=== PATIENT | female | born 1970 | race Caucasian/White ===

== ENCOUNTER 2017-09-10 06:02 | Day surgery (SDC) | payer BC, SELFPAY ==
[2017-09-05 17:50] LABS: Hematocrit 38.8 % (37-47); Mean Corp Hgb Conc 33.5 g/gl (32-36); Mean Corpuscular Hgb 30.7 pg (27.0-32.0); Mean Corpuscular Volume 91.7 fL (81-99); Mean Platelet Vol. 9.7 fl (6.2-12.0); Platelet Count 333 K/mm3 (150-450); RBC Distribution Width CV 12.4 % (11.6-14.6); RBC Distribution Width SD 40.7 fl (35.1-43.9); Red Blood Count 4.23 M/mm3 (4.2-5.4); White Blood Count 7.5 K/mm3 (4.4-11.0)
[2017-09-05 17:57] LABS: Scan Indicated on CBC? Y/N NO
[2017-09-05 18:28] LABS: Creatinine, Serum 0.84 mg/dL (0.55-1.02); EST Glomerular Filtration Rate 77 mL/min (>60); Est Glom Filt Rate - Afr Amer 93 mL/min (>60)
[2017-09-06 09:16] LABS: Anion Gap 9 (5-15); BUN 11 mg/dL (7-18); BUN/Creat Ratio 13.1 RATIO (10-20); Calcium,Total 8.3 mg/dL (8.5-10.1); Chloride 107 mmol/L (98-107); Glucose 78 mg/dL (74-106); Sodium Level 138 mmol/L (136-145); Thyroid Stim Hormone (TSH) 2.78 uIU/mL (0.358-3.74)
--- NOTE | 2017-09-09 13:12 | HP.PCM_ITS ---
History and Physical Date of Admission: 09/10/17 Surgical History and Physical Yue Andres, a 47 year old female 3 0 0 0 3, presents for RAVH/BS on September 10, 2017 at 7:30. -- Extremely Heavy Menses S/P Ablation -- Heavy bleeding with menses. 47 y.o. G 3 P 3 non-smoker with history of Ablation 1 year ago and menses continues to be heavy flow with cramping; Ablation 1 year ago/ Bleeding continues. Yue claims it started gradually and has been present 1 year. It occurs with menses. It is located in the vagina. ; It is located in the lower abdomen. Travice characterizes it to be non- radiating. Yue characterizes the quality heavy. Severity is moderate and very concerned. MEDICATIONS HISTORY: Patient is also takin. Lasix 20 mg tablet, One pill by mouth once a day 2. Topamax 100 mg tablet, 1 1/2 tab qd 3. levothyroxine 125 mcg tablet, One pill by mouth once a day ALLERGIES: No Known Allergies Infections - Chicken pox Illnesses - Migraines, Accidents - None Hospitalizations - see surgery Review of Systems: GENERAL - Denies fever, or chills SKIN - Denies skin changes EYES - Denies visual changes EARS - Denies difficulty hearing NOSE - Denies nasal congestion or bleeding MOUTH - Denies sore throat or difficulty swallowing NECK - Denies pain or swelling RESPIRATORY - Denies shortness of breath or wheezing CARDIOVASCULAR - Denies palpitations or chest pain GASTROINTESTINAL - Denies nausea, vomiting, diarrhea, constipation GENITOURINARY - Denies dysuria, frequency of urination, incontinence of urine MUSCULOSKELETAL - Denies joint or muscle pain NEUROLOGICAL - Denies localized numbness or weakness PSYCHIATRIC - Denies depression or anxiety ENDOCRINE - Denies heat or cold intolerance, weight loss or gain HEMATO-IMMUNOLOGIC - Denies excessive bleeding with cuts SOCIAL HISTORY: Alcohol Use - RARELY Smoking - Never Diet - no special diet Lifestyle - Exercise - active Seat Belt Use - always Employer - [employer]) 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 Spouse-Sig Other Occupation - Sueding Machine Tender Control - Prior Tubal FAMILY HISTORY: MENSTRUAL HISTORY: LMP Known?- DefiniteAmount/Duration - 4 days, Regularity - Regular, Frequency - monthly days, LMP - 08/25/17, Age Onset Menarche - 12 PAST PREGNANCIES: Total Pregnancies - 3; Full Term Pregnancies - 3; Premature - 0; Abortions, Induced - 0; Abortions, Spontaneous - 0; Ectopics - 0; Multiple Births - 0; Living Children - 3 SURGICAL HISTORY: 1. 04/25/2016 hysteroscopy, D and C, HTA ; Mansoor Simeon M.D. - 2. 1987 Ankle Surgery ; - 3. 06/29 (R) Shoulder Surgery ; - 4. 2013 (L) Shoulder Surgery ; Dr. Johnson - 5. 1994 BTO ; Dr. Ny - PHYSICAL EXAM BP- 128/74 Sitting, Right arm, regular cuff Weight- 243.08063 lbs Height- 65.50 inch BMI:39.91 CONSTITUTIONAL - NAD, well nourished, and well developed SKIN - No rash, lesions, or ulcers HEENT - Normocephalic, PERRLA, EOMI NECK - No nodes, no nuchal rigidity and thyroid normal size and texture LYMPH NODES - Palpation of lymph nodes in neck and groins within normal limits LUNGS - CTA x2 without wheezes, crackles or rales CARDIAC - Regular rate and rhythm without rubs, murmurs, or gallops BREAST - No dominant masses, no tenderness, no axillary adenopathy, no nipple discharge, no skin changes ABDOMEN - Without hepatosplenomegaly, distention, masses, rebound, or guarding; normal bowel sounds; no hernias EXTREMITIES - No edema or calf tenderness NEUROLOGICAL - Cranial nerves II-XII grossly intact PSYCHIATRIC - A and O to time, place, person, mood and affect External Genitial Vagina - non-tender without lesions Urethra/Urethral Meatus - non-tender Bladder - non-tender Vagina - vaginal kamara are pink and moist without loss of rugae and no evidence of atropy Cervix - without cervical motion tenderness and has normal size and features without evident lesions and cervix high in vagina with narrow angle Uterus - multiparous size 6 cm & wt 75-125 g Adnexa - clear without masses or tenderness ASSESSMENT/PLAN: 1. Menorrhagia S/P ablation and now bleeding heavily again. Wants to proceed with definitive treatment with a hysterectomy. Plan RAVH/BS. Discussed RBAs and all questions answered.
[2017-09-10] VITALS (13 sets, daily range): BP systolic 118–166; BP diastolic 57–93; PULSE 49–63; RESP 16; TEMP 36.2–36.8; O2SAT 52–100; BMI 39.3; BMI 39.5
--- NOTE | 2017-09-10 06:16 | EKG12_ITS ---
Test Reason : PRE OP Blood Pressure : / mmHG Vent. Rate : 052 BPM Atrial Rate : 052 BPM P-R Int : 140 ms QRS Dur : 082 ms QT Int : 436 ms P-R-T Axes : 026 -11 004 degrees QTc Int : 405 ms Sinus bradycardia Low voltage QRS (pre cordial leads) Confirmed by MIGUE CERON, SKYLAR ([id number]), purchasing expeditor JERMAINE SEBASTIAN ([id number]) on 09/13/2017 2:03:03 PM Referred By: Mansoor Simeon Confirmed By:SKYLAR CAMARENA MD
[2017-09-10 06:50] LABS: Prothrombin Time (Protime)PT. 13.6 SECONDS (11.7-14.9)
[2017-09-10 06:51] LABS: Partial Thromboplast Time 33.4 Seconds (24.1-36.2)
--- NOTE | 2017-09-10 07:30 | UT_PTH ---
PATIENT: CORY QUIJANO LOC: [facility] [place] U#:[id number] AGE/SX: 47/F ROOM: RE09/10/[address]: Dr. Mansoor Simeon MD : [id number] BED: DIS: 09/11/2017 SPEC #: [id number] RECD: 09/10/17 11:34 STATUS: ALFA MARCELA #: [id number] PATRICIA: 09/10/17 07:[address]: Mansoor Simeon DEPT: SURGICAL PATHOLOGY RECD BY: Sameer Burnette ENTERED: 09/10/17 12:49 SP TYPE: UTERUS OTHR DR: Dr. Mansoor Zendejas MD Tissues: Uterus, NOS Procedures: Surgery Specimen Level V HEADER OPERATION: Laparoscopic robotic hysterectomy, salpingectomy PRE-OP DIAGNOSIS: Menorrhagia TISSUE SUBMITTED: Uterus and bilateral fallopian tubes MICROSCOPIC DIAGNOSIS Uterus, hysterectomy: Cervix ? nabothian cysts. Endometrium ? secretory endometrium. Myometrium ? adenomyosis. Left fallopian tube ? no pathologic change. Right fallopian tube ? no pathologic change. AM:cesar 09/11/17 MICROSCOPIC DESCRIPTION Slides are reviewed. GROSS DESCRIPTION Received in fixative is one container labeled with the patient's name and designated uterus. The specimen consists of a uterus with attached cervix and attached right and left fallopian tubes. The uterus with cervix measures 8 x 5 x 4 cm and weighs 73.2 gm. The ectocervix is unremarkable. The cervical os is oval in contour. The endocervical canal measures 3.5 cm in length and is grossly unremarkable. The triangular endometrial cavity measures 3.2 x 2.6 cm. The endometrium is reddish-mcmahon, velvety and glistening and measures up to 0.2 cm in thickness. The myometrium measures 1.7 cm in average thickness and is free of mass lesions. The right and left fallopian tube are similar in appearance. The average length of the fallopian tubes is 4.5 cm and average diameter is 0.5 cm. No mass lesions are identified. Sulfonation Equipment Operator sections are submitted in eight cassettes as follows: 1 - anterior cervix, 2 - posterior cervix, 3 & 4 - anterior uterine wall, 5 & 6 - posterior uterine wall, 7 ? right fallopian tube, 8 ? left fallopian tube. / AM:cesar 09/10/17 TC:5 CPT: 95842
--- NOTE | 2017-09-10 07:36 | OP.PCM_ITS ---
Operative Report Date of Procedure: 09/10/17 Surgeon: Mansoor Simeon MD, FACOG Tip Stitcher: PRAVEEN Melendez Anesthesia: Dinh Simeon MD Type of anesthesia: General Endotracheal Procedure: Robotic Assisted Vaginal Hysterectomy and Bilateral Salpingectomy Pre-Op: Menorrhagia Status Post Endometrial Ablation Post-Op: Menorrhagia Status Post Endometrial Ablation Findings: 8 cm uterus with normal appearing tubes and ovaries bilaterally; adhesions of omentum to umbilicus; evidence of prior tubal ligation Indication: This is a 47 year old patient multiparous who has been having problems with extremely heavy menses. Conservative measures have not been helpful. The patient has been counseled regarding the risks, benefits and alternatives of this procedure including the possibility of bleeding, infection , and injury to surrounding structures such as bowel bladder and all questions were answered. She understands that is BSO is needed that she will need to be on HRT for an indefinite period of time. Procedure: Pt taken to the operating room where after induction of general anesthesia the patient was prepped and draped in the usual sterile fashion and placed on a non-slip Huggy-u-vac device. Trendendelenburg test was satisfactory. Bladder was drained of urine with a Munguia catheter which was left in place. Anterior cervix grasped and cervix was dilated to about 3-4 mm. Uterus sounded to 8 cms. 0-Vicryl suture was placed at the 3:00 and 9:00 position of the cervix. A medium v-care device was then placed in the uterus to allow uterine manipulation and attention was turned to the laparoscopic portion of the procedure. Ropivocaine 0.5% was injected approximately 2-3 cm superior to the umbilicus and an 8 mm robotic camera port was introduced directly with intraperitoneal placement confirmed with insufflation. 8 mm robotic side ports were introduced under direct visualization approximately 11-13 cm lateral and 2 cm inferior to the umbilical port. A 5 mm left upper quadrant port was introduced and airseal insufflation with CO2 was started. The above findings were noted. Robot was docked without difficulty and attention turned to the robotic portion of the procedure. Approximately 23 cc of Ropivicaine was used. Bilateral mesosalpinx were ligated with 45 rodrigues bipolar coagulation to the level of the round ligament. The posterior aspect of the cervix was identified and then opened for about 1 cm using 25 watt monopolar cautery identifying the V -care device which had been placed vaginally. Bladder flap was opened and divided to the level of the round ligaments using monopolar cautery. Progressive bites were then ligated on each side of the cervix with 35 rodrigues bipolar cautery to the uterine arteries. The anterior vaginal mucosa was then entered and cervix circumscribed with monopolar cautery. Uterus and attached tubes were then removed through the vagina. Vaginal cuff was closed first with 0-Vicryl Makenna stitches placed at each angle followed by closure of the mid- cuff with 0-Monocryl V-lock suture in two layers. Pelvis was copiously irrigated with saline and the right ureter gramjao noted to peristalse. Robot was undocked and trocars were removed with as much gas as possible. Incisions were closed with 4-0 Monocryl subcuticular sutures and incisions covered with steri-strips and opsite dressing. The patient tolerated the procedure well and was taken to the recovery room in satisfactory condition. Sponge, instruments and needle counts were all correct. There were no apparent complications of the surgery. Cefotan 2 gms IV was given prior to the procedure. Estimated Blood Loss: Minimal Specimen to Pathology: Uterus and bilateral tubes`
--- NOTE | 2017-09-10 07:44 | PCM.DC.VHY ---
Discharge Diet: No Restrictions Discharge Activity: Return to Normal Activity, May Not Drive - while taking narcotic pain medications., May Shower, May Take a Tub Bath May resume sexual activity in: 6-8 weeks Call your doctor if your incision/area has: Continuous Slow Oozing, Sudden Increased Bleeding, Increased Pain/ Swelling, Increased Redness, Foul Smelling Discharge Call your doctor if you observe: Fever of 101 or Higher, Inability to urinate, Inability to have a bowel movement, Using more than one pad per hour Allergies/Adverse Reactions: Allergies No Known Allergies Allergy (Verified 09/04/17 16:24) Medications to take at Discharge Furosemide [Lasix] 20 mg PO DAILY 10/16/13 Ibuprofen [Motrin] 400 mg PO Q4H PRN PRN 10/16/13 Lysine 1,000 mg PO DAILY 10/16/13 Topiramate [Topamax] 50 mg PO DAILY 10/16/13 Topiramate [Topamax] 100 mg PO QHS 10/16/13 Levothyroxine Sodium [Synthroid] 125 mcg PO DAILY 09/04/17 Docusate Sodium [Colace] 100 mg PO BID PRN PRN #60 cap 09/10/17 Oxycodone [Oxyir] 5 mg PO Q6H PRN PRN 7 Days #20 tab 09/10/17 The following prescriptions were given: Oxycodone [Oxyir] 5 mg PO Q6H PRN PRN 7 Days #20 tab PRN Reason: Severe Pain (6-10/10) Docusate Sodium [Colace] 100 mg PO BID PRN PRN #60 cap PRN Reason: Constipation Primary Care Physician: Mansoor Zendejas [Primary Care Provider] - Please Follow Up With: Mansoor Simeon MD When: 2 - 3 weeks
[2017-09-10] MEDS: Ropivacaine 0.5% 30 ML Vial (08:10)
[2017-09-10] MEDS: Dextrose 5%-Lactated Ringers 1,000 ML 150 ML IV ×2 (12:20→18:11)
[2017-09-10] MEDS: Ketorolac 30 MG/ML Syringe IV ×2 (13:19→18:08)
[2017-09-10] MEDS: Furosemide 20 MG Tablet PO (13:20)
[2017-09-10] MEDS: Acetaminophen 500 MG Tablet 1000 MG PO ×2 (13:20→20:32)
[2017-09-10] MEDS: Enoxaparin 40 MG/0.4 ML Syringe SC (18:08)
[2017-09-10] MEDS: Topiramate 100 MG Tablet PO (20:32)
[2017-09-11] MEDS: Ketorolac 30 MG/ML Syringe IV ×2 (00:19→06:21)
[2017-09-11 02:00] VITALS: PULSE 64
[2017-09-11 02:45] VITALS: BP 111/61; PULSE 70; RESP 14; TEMP 36.8; O2SAT 97
[2017-09-11] MEDS: Acetaminophen 500 MG Tablet 1000 MG PO (06:20)
[2017-09-11] MEDS: Levothyroxine 125 MCG Tablet PO (06:20)
[2017-09-11 06:38] LABS: Hematocrit 35.2 % (37-47); Hemoglobin 11.7 g/dl (12.0-15.0); Mean Corp Hgb Conc 33.2 g/gl (32-36); Mean Corpuscular Volume 93.1 fL (81-99); Mean Platelet Vol. 9.4 fl (6.2-12.0); Platelet Count 284 K/mm3 (150-450); RBC Distribution Width CV 12.7 % (11.6-14.6); RBC Distribution Width SD 41.7 fl (35.1-43.9); Red Blood Count 3.78 M/mm3 (4.2-5.4); White Blood Count 13.3 K/mm3 (4.4-11.0)
[2017-09-11 06:41] LABS: Scan Indicated on CBC? Y/N NO
[2017-09-11 07:03] LABS: Creatinine, Serum 0.94 mg/dL (0.55-1.02); EST Glomerular Filtration Rate 67 mL/min (>60); Est Glom Filt Rate - Afr Amer 82 mL/min (>60); Estimated Creatinine Clearance 65.86 ml/min
[2017-09-11 07:40] VITALS: O2SAT 96
--- NOTE | 2017-09-11 08:46 | PCM.PN.OB ---
Subjective: Patient without complaints. Tolerating diet. Pain well controlled. Denies flatus. - Physical Exam Vital Signs AF, VSS Temp Pulse Resp BP Pulse Ox 98.3 F 70 14 111/61 97 09/11/17 02:45 09/11/17 02:45 09/11/17 02:45 09/11/17 02:45 09/11/17 02:45 Oxygen Delivery Method Room Air Weight: 240 lb 4.862 oz Body Mass Index (BMI) 39.5 Intake and Output for Last 24 Hours 09/09/17 09/10/17 09/11/17 23:59 23:59 23:59 Intake Total 4301 / 4301 2620 / 2620 Output Total 650 / 650 2250 / 2250 Balance 3651 / 3651 370 / 370 Laboratory Tests Past 24 Hrs 09/11/17 09/11/17 06:20 06:20 WBC 13.3 H RBC 3.78 L Hgb 11.7 L Hct 35.2 L MCV 93.1 MCH 31.0 MCHC 33.2 RDW 12.7 RDW Differential 41.7 Plt Count 284 MPV 9.4 Creatinine 0.94 Estim Creat Clear Calc 65.86 Est GFR (MDRD) Af Amer 82 Est GFR (MDRD) Non-Af 67 Wounds are clean, dry, intact. Good urine output. Creatinine okay. Hemoglobin stable. Medical Necessity - Tobacco Use Smoking Status: Never smoker Assessment/Plan Doing well. Will release to home with routine instructions after demonstrating bowel function.
[2017-09-11 09:39] VITALS: BP 114/56; PULSE 68; RESP 18; TEMP 36.4; O2SAT 97
[2017-09-11] MEDS: Topiramate 50 MG Tablet PO (09:43)
[2017-09-11] MEDS: Furosemide 20 MG Tablet PO (09:43)
== END 2017-09-11 10:11 | disposition home or self-care (01) ==
LOC: SDC 06:03 → AC 06:05 → MS3 09-12 06:17
PROVIDERS: Anesthesiology; Family Provider Family Medicine; PCP Family Medicine; Visit Provider Obstetrics & Gynecology
PROC: 0UT94ZZ Resection of Uterus, Percutaneous Endoscopic Approach (ICD-10-PCS; CPT 58552; principal; 2017-09-10 07:10)
DX: N92.0 Excessive and frequent menstruation with regular cycle (principal); N88.8 Other specified noninflammatory disorders of cervix uteri; N80.0 Endometriosis of uterus; G47.30 Sleep apnea, unspecified; G43.909 Migraine, unspecified, not intractable, without status migrainosus; E06.9 Thyroiditis, unspecified; Z79.899 Other long term (current) drug therapy
CPT/HCPCS: 00840; 58552; S2900; 36415; 80048; 82565; 84443; 85027; 85610; 85730; 86850; 86900; 88307; 93005; 94762; J7120; A4216; J2405